=== PATIENT | female | born 1985 | race Caucasian/White ===

== ENCOUNTER 2019-11-24 18:46 | Inpatient (IN) | payer OTHER, MEDICAID, SELFPAY ==
--- NOTE | 2019-11-24 19:35 | PM.OBHP.1 ---
OB HPI Date/Time Date of admission: 11/24/19 Date Patient Seen: 11/24/19 Time Patient Seen: 19:20 History of Present Condition Chief complaint: Observation : 1 Para: 0 Estimated Date of Delivery: 11/15/19 Estimated Gestational Age (weeks): 41w2d Narrative: Kevin Alejandra is a 34 year old at 41 weeks and 2 days by LMP who has been followed by Viviana Perea CNM throughout her . Patient was planning for a at the [facility] however she has been in latent labor for the last 3 days without significant cervical change despite regular painful contractions. The decision was made this evening to transfer to the hospital for pain management. Denies leaking or bleeding and reports good movement. has been uncomplicated. She initiated care at 13 weeks. Patient denies any significant past medical history or past surgical history. She lives on [address] with her partner Vinayak. History of Present care: good care Dating criteria: based on LMP only Preadmission Labs Blood type: 0 (-) negative -: Antibody screen: negative, GBS status: negative, HBsAG: negative and RPR/VDLR: negative -: Chlamydia screen: not detected and Gonorrhea screen: not detected -: Rubella: immune HCT: 37.5 Urine: Negative 1 hr GTT: 70 Evaluation Evaluation Baseline heart rate: 130 Variability: Moderate (11-25) monitor accelerations: Present monitor decelerations: Late (Recurrent) Contraction Frequency (minutes): 3 Category of Tracing: II Cervical dilation (cm): 1 Cervical effacement (%): 90 station: -1 Exam Vital Signs (past 8 hours): Temperature 36.5? blood pressure 125/71 pulse 74 Const General: healthy appearing and acute distress (Uncomfortable with contractions) [facility] Head: normal to inspection Ears: hearing grossly normal bilaterally Nose: external nose normal Face and sinus: normal facial exam Mouth: oral mucosae normal Eyes General: appearance normal, both eyes and all related structures Neck Neck: normal visual inspection Resp Effort & Inspection: normal respiratory effort Auscultation: clear to auscultation bilaterally Cardio Rate: regular rate Rhythm: regular rhythm Heart Sounds: no murmurs GI Other: Gravid External Female Exam: external appearance normal Manual OB Exam: dilated 1, effaced fully and station -1 Presentation: vertex Estimated Weight (lbs): 7 Back/Spine/Pelvis Back: normal to inspection Skin General: no rashes or lesions noted Extrem General: normal to inspection and no pedal edema Assessment and Plan Assessment and Plan Assessment and Plan narrative: 34-year-old at 41 weeks and 2 days gestation with prolonged latent labor. GBS negative. She is exhausted and very painful. Unfortunately cervix is still 1 cm and she has been having recurrent late decelerations on the monitor since arrival. Plan Bolus IV fluids now to see if we can improve the strip Epidural now Discussed the possibility of for intolerance of labor remote from delivery. Patient is aware. Will monitor closely. Dr. Loja is aware of the situation and will come in for if necessary. Rapid COVID-19 test pending
[2019-11-24 20:15] LABS: Add Manual Diff / Slide Review NO; Basophils Absolute Auto 0 /uL (0-100); Basophils Percent Auto 0.2 % (0-2); Eosinophils Absolute Auto 0 /uL (0-450); Hematocrit 40.3 % (36-46); Hemoglobin 13.9 g/dL (12.0-16.0); Lymphocytes Absolute Auto 1100 /uL (1100-4500); Lymphocytes Percent Auto 8.3 % (25-40); Mean Corpuscular HGB Conc 34.4 % (30-36); Mean Corpuscular Hemoglobin 32.2 PG (26-34); Mean Corpuscular Volume 93.5 fL (80-100); Monocytes Absolute Auto 800 /uL (0-900); Monocytes Percent Auto 6.1 % (3-14); Neutrophils Absolute Auto 11200 /uL (1500-7000); Neutrophils Percent Auto 85.4 % (50-75); Platelet Count 179 X10^3/uL (150-400); Red Cell Distribution Width 12.9 % (11.6-14.8); White Blood Cell Count 13.1 X10^3/uL (4.5-11.0)
--- NOTE | 2019-11-24 20:32 | PM.OBPNLAB ---
Date/Time Date Patient Seen: 11/24/19 Time Patient Seen: 20:20 Pain Control Pain control: tolerating well and epidural Comments: Patient is much more comfortable with her epidural and denies pain Pelvic Exam Dilation (cm): 1 Effacement (%): 90 station: -1 Amniotic membrane status: Intact Status status: Category ll Heart Rate Baseline: 140 Monitor Accelerations: Present Monitor Decelerations: Recurrent Monitor Variability: Moderate Assessment and Plan Plan: Comments: Patient received an epidural with excellent pain control however baby continues to have recurrent late decelerations despite fluid resuscitation and position change. Cervix is still 1 cm. Recommended primary section for intolerance of labor remote from delivery. Discussed risks and benefits of including bleeding, infection and injury to surrounding organs (bowel and bladder specifically). All questions answered. Consent signed and placed in the chart. Will give 2 g of cefazolin prior to surgery.
--- NOTE | 2019-11-24 20:36 | PM.PREOP ---
Pre-operative Note COVID-19 COVID-19 status: Result pending Result date/Date tested (Pos, Neg/Pending): 11/24/19 Interval Note History & Physical reviewed/Exam performed by Physician: Yes Changes to H&P: No
[2019-11-24] MEDS: LACTATED RINGERS 1,000 ML 100 ML IV ×3 (20:45→22:06)
[2019-11-24] MEDS: CEFAZOLIN 2 GM/100 ML FROZ.PIGGY IV (21:20)
--- NOTE | 2019-11-24 21:37 | SUR.OPER ---
Supine on Padded OR bed, head on pillow, safety belt at thigh, arms secured on padded arm boards at <90 degrees abduction. Bump under right buttock. Legs uncrossed with pillow under knees, gel pad to heels, tape over blanket to lower legs.
--- NOTE | 2019-11-24 21:52 | SUR.OPER ---
Viable male delivered at 21:41. Cord blood tubes x2 and placenta sent with L&D RN.
[2019-11-24 21:57] LABS: COVID19 -Nasal RAPID Negative (Negative)
--- NOTE | 2019-11-24 22:25 | PM.OP.1 ---
Operative Date/Time/Diagnoses Date of procedure: 11/24/19 Time of procedure: 21:15 Pre-op diagnosis: intolerance of labor Post-op diagnosis: same Procedure & Clinicians Procedure: Primary low-transverse section Same procedure as scheduled: Yes Indications: 41 weeks of intolerance of labor Surgeon: Jodi Virgen Template Inspector: Naomi Loja Anesthesia Type: Epidural Operative Notes Findings: Normal uterus, tubes and ovaries Closure Type: primary Specimen(s): other (Cord blood gases) Applied: catheter Estimated Blood Loss (mL): 450 Blood products transfused: none Procedure in detail: The patient was taken to the operating room. She was then placed in the dorsal supine position with a leftward tilt. She was prepped and draped in the usual sterile fashion. A timeout was performed. After epidural analgesia was found to be adequate, a Pfannenstiel skin incision was made 2 fingerbreadths above the pubic symphysis and carried through to the underlying layer fascia. The fascia was nicked in the midline and the incision extended bilaterally with Yoo scissors. The superior aspect of the fascial incision was grasped with a Gallo clamps, elevated, and the underlying rectus muscles dissected off sharply and bluntly. Attention was then turned to the inferior aspect of this incision which in a similar fashion was grasped with a Gallo clamps, elevated, and the underlying rectus muscles dissected off sharply and bluntly. The rectus muscles were in the midline. The peritoneum was identified, grasped between 2 hemostats, and entered sharply with the Metzenbaum scissors. This incision was extended superiorly and inferiorly with good visualization of the bladder. The bladder blade was inserted. The vesicouterine peritoneum was identified, grasped with the pickup, and entered sharply with the Metzenbaum scissors. This incision was extended bilaterally, and the bladder flap was created digitally. The bladder blade was reinserted. The lower uterine segment was incised in a transverse fashion with the scalpel. Upon entering the amniotic sac there was a moderate amount of thick meconium-stained fluid. The infant's head was delivered followed by remainder of the body. The cord was double clamped and cut and a segment taken for cord gases. The infant was handed off to waiting RN and RT. The placenta was delivered manually. The uterus was cleared of all clots and debris. The uterine incision was repaired with #1 chromic in a running interlocking fashion and a second layer the same suture was used for an imbricating layer. Hemostasis was achieved. The tubes and ovaries were examined and were found to be normal. The gutters were cleared of all clots and debris. The bladder flap was reapproximated using 2-0 Vicryl in a running fashion. The parietal peritoneum was closed using 2-0 Vicryl in a running fashion. The fascia was reapproximated using #1 Vicryl in a running fashion. Subcutaneous layer was copiously irrigated with warm normal saline. The subcutaneous layer was reapproximated with 3-0 Vicryl. The skin was closed with 4-0 undyed Vicryl in a subcuticular fashion. Steri-Strips were placed. An Aquacel dressing was placed. The uterus was expressed of a small amount of old blood. Sponge, lap, and instrument counts were correct. The patient tolerated the procedure well, and was taken to PACU in stable condition. required resuscitation with PPV for 2 minutes then transition to CPAP. He was taken to the nursery for continued care. Apgars were 3 and 8 at 1 and 5 minutes. weight 3045 g. Complications: none Post-operative Condition: stable Disposition: PACU Plan for aftercare: Routine post care
[2019-11-24 22:31] VITALS: BP 109/71; PULSE 83; RESP 13; O2SAT 93
[2019-11-24 22:39] VITALS: BP 118/62; PULSE 88; RESP 14; O2SAT 98
[2019-11-24 22:41] VITALS: BP 91/64; PULSE 92; RESP 19; O2SAT 95
[2019-11-24 22:45] VITALS: TEMP 36.7
[2019-11-24 22:48] VITALS: BP 111/67; PULSE 78; RESP 15; O2SAT 97
--- NOTE | 2019-11-24 22:52 | SUR.PHASEI ---
report called to Poonam
[2019-11-24 22:53] VITALS: BP 111/66; PULSE 82; RESP 20; TEMP 36.5; O2SAT 94
--- NOTE | 2019-11-24 23:07 | SUR.PHASEI ---
Patient transferred to the center. Awake and oriented. Report given to Poonam. VS stable. Denied pain. IV and Arauz patent. Fundus and kita-pad checked by RN.
[2019-11-25] MEDS: diphenhydrAMINE 50 MG/ML VIAL 25 MG IV (01:30)
[2019-11-25] MEDS: KETOROLAC 30 MG/ML VIAL IV ×3 (05:12→18:12)
[2019-11-25] MEDS: LACTATED RINGERS 1,000 ML 100 ML IV (05:15)
[2019-11-25 07:18] VITALS: BP 114/65
[2019-11-25 08:34] LABS: Hemoglobin 11.2 g/dL (12.0-16.0)
[2019-11-25 09:12] VITALS: TEMP 37.5
[2019-11-25] MEDS: PRENATAL VIT,CALC/IRON/FOLIC 1 TABLET 1 TAB PO (09:12)
[2019-11-25] MEDS: DOCUSATE 250 MG CAPSULE PO (09:12)
[2019-11-25] MEDS: OXYCODONE/ACETAMINOPHEN 5/325 TABLET 1 TAB PO ×3 (09:12→21:51)
[2019-11-25 11:41] VITALS: TEMP 36.6
--- NOTE | 2019-11-25 12:17 | P.PNOB_ITS ---
Subjective - OB Subjective Patient comments: no complaints, pain well controlled, tolerating diet and flatus present baby status: NICU (Loyda Thompson) Date Patient Seen: 11/25/19 Time Patient Seen: 11:15 Interval history: Patient denies any complaints or concerns this morning. She has been in without difficulty. Arauz is still in place. She is eating and passing flatus. Hoping to start pumping soon since babies in the NICU. Baby is continuing to need CPAP but overall doing well. Exam Vital Signs (past 8 hours): - 11/25/19 07:18 11/25/19 09:12 11/25/19 11:41 Temperature 99.5 F 98 F Blood Pressure 114/65 Oxygen Delivery Method Room Air Narrative Exam Narrative: General: Awake and alert, no acute distress. HEENT: NCAT, EOMI, moist oral mucosa CV: Regular rate and rhythm, no murmurs, rubs or gallops Lungs: CTAB, no wheezes, rales, or rhonchi Abdomen: Aquacel dressing intact with minimal drainage. Soft, nontender; bowel tones active; uterus firm 1 cm below umbilicus. Extremities: Warm, no edema bilaterally Objective Labs Result Diagrams: 11/25/19 08:22 Labs: Laboratory Results - last 24 hr 11/24/19 11/24/19 11/24/19 19:40 19:40 19:40 WBC 13.1 H RBC 4.30 Hgb 13.9 Hct 40.3 MCV 93.5 MCH 32.2 MCHC 34.4 RDW 12.9 Plt Count 179 Neut % (Auto) 85.4 H Lymph % (Auto) 8.3 L [place] % (Auto) 6.1 Eos % (Auto) 0.0 L Baso % (Auto) 0.2 Neut # (Auto) 76296 H Lymph # (Auto) 1100 [place] # (Auto) 800 Eos # (Auto) 0 Baso # (Auto) 0 COVID-19 PCR Negative Blood Type O Negative Antibody Screen Positive Antibody Identification Anti-D 11/25/19 08:22 WBC RBC Hgb 11.2 L Hct 32.0 L MCV MCH MCHC RDW Plt Count Neut % (Auto) Lymph % (Auto) [place] % (Auto) Eos % (Auto) Baso % (Auto) Neut # (Auto) Lymph # (Auto) [place] # (Auto) Eos # (Auto) Baso # (Auto) COVID-19 PCR Blood Type Antibody Screen Antibody Identification Assessment & Plan Assessment and Plan (1) Status post section: Status: Acute Current Visit: Yes (2) 41 weeks gestation of : Status: Acute Current Visit: Yes (3) intolerance to labor, delivered, current hospitalization: Status: Acute Current Visit: Yes Plan day: 1 plan OB: routine postop care Comments: Patient is doing very well day 1 after primary for intolerance of labor. Infant required transfer to the NICU at [facility] for respiratory support. He is stable. May discharge patient in the morning if she is doing well so she can go see her baby. Time Spent With Patient Time: Total time spent is greater than 50% in coordination of care (as documented) at patient's floor/unit and/or counseling patient: Time with patient: less than 15 minutes
[2019-11-25 16:10] VITALS: TEMP 36.8
[2019-11-26] MEDS: IBUPROFEN 600 MG TABLET PO ×3 (00:10→14:20)
[2019-11-26] MEDS: OXYCODONE/ACETAMINOPHEN 5/325 TABLET 1 TAB PO (03:14)
[2019-11-26 06:43] LABS: Hematocrit 36.1 % (36-46); Hemoglobin 12.3 g/dL (12.0-16.0)
[2019-11-26] MEDS: LANOLIN OINT 7 GM 1 APPLIC TOP (08:24)
[2019-11-26] MEDS: PRENATAL VIT,CALC/IRON/FOLIC 1 TABLET 1 TAB PO (08:24)
[2019-11-26] MEDS: DOCUSATE 250 MG CAPSULE PO (08:25)
[2019-11-26] MEDS: OXYCODONE IR 5 MG TABLET PO ×2 (08:25→14:20)
[2019-11-26] MEDS: ACETAMINOPHEN 325 MG TABLET 650 MG PO ×2 (08:25→14:21)
--- NOTE | 2019-11-26 08:36 | P.DS_ITS ---
Discharge Providers Provider Date of admission: 11/24/19 18:46 Discharge Date: 11/26/19 Consults: 11/25/19 04:32 Consult to Insurance Claims Representative Routine Comment: Discharge provider: Jodi Virgen DO Summary Hospital Course Date Patient Seen: 11/26/19 Time Patient Seen: 07:45 Procedures: Primary low-transverse section Hospital Course: Patient is a 34-year-old after primary low transverse section for intolerance labor. Patient received care with Viviana Perea, secretary to board of commissioners, however transferred to [facility] in early labor for pain control. Upon arrival to the center she was having late decelerations with every contraction. Attempts were made at resuscitation with fluid and position change. Patient received an epidural with excellent pain control. After epidural placement she continued to have recurrent late deceleration so the decision was made for primary . Upon delivery there was sick meconium. Patient did well with surgery however required resuscitation after and continued support with CPAP. He was transferred to the NICU at [facility] for continued support. patient has done very well. She is ambulating, eating, voiding and passing flatus. Vaginal bleeding is light. Pain is well controlled with ibuprofen and oxycodone. She will discharge today to join her son in the NICU. She has been able to pumped and produce a small amount of colostrum. Patient advised to call for fevers, severe pain or bleeding through more than a pad an hour. She will follow-up later this week for dressing removal. Peripartum Data Infant Delivery Method: Section complications: none 1: Gender: Male Disposition of : NICU Discharge Diagnosis (1) Status post section: Status: Acute (2) 41 weeks gestation of : Status: Acute (3) intolerance to labor, delivered, current hospitalization: Status: Acute Time Spent with Patient Time attestation: Total time spent providing and/or coordinating discharge services: Time spent: Less than 30 minutes Objective Labs Result Diagrams: 11/26/19 06:30 Labs: Laboratory Results - last 24 hr 11/25/19 11/26/19 08:22 06:30 Hgb 11.2 L 12.3 Hct 32.0 L 36.1 Exam Vital Signs (past 8 hours): Oxygen Delivery Method Room Air Narrative Exam Narrative: Temperature 98.2? blood pressure 109/68 heart rate 71 respirations 17 General: Awake and alert, no acute distress. HEENT: NCAT, EOMI, moist oral mucosa CV: Regular rate and rhythm, no murmurs, rubs or gallops Lungs: CTAB, no wheezes, rales, or rhonchi Abdomen: Aquacel dressing intact without new drainage. Soft, nontender; bowel tones active; uterus firm 1 cm below umbilicus. Extremities: Warm, no edema bilaterally, 2+ pedal pulses bilaterally Discharge Plan Discharge Plan Patient Disposition: Home Discharge orders & Medications Prescriptions: No Action docusate sodium 250 mg capsule 250 mg PO DAILY Qty: 30 RF: 0 ibuprofen 600 mg tablet 600 mg PO Q6HR PRN (Reason: Fever/Mild Pain (1-3)) Qty: 30 RF: 0 oxycodone 5 mg tablet 5 mg PO Q4HR PRN (Reason: Pain, Moderate (4-6)) Qty: 20 RF: 0 Follow up/Referrals: Jodi Virgen DO [Physician] - 11/29/19 12:00 pm Visit Report/Discharge Packet Visit Report Forms: Patient Portal/API, Stroke Signs & Symptoms
[2019-11-26 10:06] VITALS: BP 114/65; PULSE 82; RESP 20; TEMP 36.8
== END 2019-11-26 15:20 | disposition home or self-care (01) | DRG 540 ==
PROVIDERS: Admitting Provider Family Medicine; Referring Provider Family Medicine; Visit Provider Family Medicine
PROC: 10D00Z1 Extraction of Products of Conception, Low, Open Approach (ICD-10-PCS; CPT 59514; principal; 2019-11-24 21:00)
DX: O63.0 Prolonged first stage (of labor) (principal); Z3A.41 41 weeks gestation of pregnancy; Z37.0 Single live birth; O26.813 Pregnancy related exhaustion and fatigue, third trimester; O76 Abnormality in fetal heart rate and rhythm complicating labor and delivery; O77.0 Labor and delivery complicated by meconium in amniotic fluid; Z11.59 Encounter for screening for other viral diseases
CPT/HCPCS: 01967; 01968; 36415; 59050; 59514; 85014; 85018; 85025; 86850; 86870; 86900; 86901; 87635; 99222; G0379; J0690; J1200; J1885; J2274; J2405; J2590; J3010

== ENCOUNTER → 2020-10-21 11:23 | Outpatient (CLI) | payer OTHER, MEDICAID, SELFPAY ==
[2020-10-21 20:08] LABS: COVID19 - ORCAS (NP or Nasal) Negative (Negative)
== END ==
PROVIDERS: PCP Family Medicine; Visit Provider Family Medicine
DX: Z20.822 Contact with and (suspected) exposure to COVID-19 (principal)
CPT/HCPCS: U0003

== ENCOUNTER → 2021-10-29 09:35 | Outpatient (CLI) | payer OTHER, MEDICAID, SELFPAY ==
[2021-10-29 18:47] LABS: Add Manual Diff / Slide Review NO; Basophils Absolute Auto 0 /uL (0-100); Basophils Percent Auto 0.7 % (0-2); Eosinophils Absolute Auto 100 /uL (0-450); Eosinophils Percent Auto 2.3 % (2-4); Hematocrit 40.6 % (36-46); Lymphocytes Absolute Auto 1300 /uL (1100-4500); Lymphocytes Percent Auto 32.6 % (25-40); Mean Corpuscular HGB Conc 34.5 % (30-36); Mean Corpuscular Hemoglobin 32.3 PG (26-34); Mean Corpuscular Volume 93.7 fL (80-100); Monocytes Absolute Auto 400 /uL (0-900); Monocytes Percent Auto 8.9 % (3-14); Neutrophils Absolute Auto 2200 /uL (1500-7000); Neutrophils Percent Auto 55.5 % (50-75); Platelet Count 182 X10^3/uL (150-400); Red Blood Cell Count 4.33 X10^6/uL (4.0-5.2); Red Cell Distribution Width 12.5 % (11.6-14.8)
[2021-10-29 18:50] LABS: Alanine Aminotransferase 17 IU/L (<35); Albumin 4.4 g/dL (3.5-5.0); Albumin Globulin Ratio 1.6 (1.0-2.8); Alkaline Phosphatase 55 U/L (38-126); Aspartate Aminotransferase 22 IU/L (14-36); BUN Creatinine Ratio 15.3 (6-22); Bilirubin Total 0.6 mg/dL (0.2-1.3); Blood Urea Nitrogen 11 mg/dL (7-17); Calcium 9.4 mg/dL (8.4-10.2); Carbon Dioxide 27 mmol/L (22-32); Chloride 103 mmol/L (98-107); Estimated Glomerular Filt Rate > 60 mL/min (>60); Globulin 2.8 g/dL (1.7-4.1); Glucose 94 mg/dL (70-100); HEMOLYSIS < 15 (0-50); Potassium 4.8 mmol/L (3.4-5.1); Sodium 138 mmol/L (137-145); Total Protein 7.2 g/dL (6.3-8.2)
[2021-10-29 19:46] LABS: Thyroid Stimulating Hormone 0.639 uIU/mL (0.47-4.68)
== END ==
PROVIDERS: PCP Physician Assistant; Visit Provider Physician Assistant
DX: N92.0 Excessive and frequent menstruation with regular cycle (principal)
CPT/HCPCS: 80053; 84443; 85025

== ENCOUNTER → 2022-11-26 13:13 | Outpatient (CLI) | payer OTHER, MEDICAID, SELFPAY ==
--- NOTE | 2022-11-26 | DI.US.S_ITS ---
PROCEDURE: US OB <= 14 WEEKS FETUS INDICATIONS: DATING OUTSIDE/PRIOR DATING DATA: Last menstrual period (LMP): 09/17/2022. LMP-based estimated date of delivery (JAMIA): 06/24/2023. First dating scan (date and location): 11/22/2022 at . Estimated date of delivery (JAMIA) from first dating scan: 06/20/2023. TECHNIQUE: Real-time scanning was performed of the fetus, with image documentation and biometric measurements. Endovaginal scanning: Not performed COMPARISON: None. FINDINGS: A single living intrauterine gestation is present. heart rate is 152 BPM. Based on the crown-rump length, the estimated gestational age is 10 weeks 4 days. A normal appearing yolk sac is visualized. Ovaries are grossly normal. There is a corpus luteal cyst in the right ovary. IMPRESSION: 1. A single living intrauterine gestation with an estimated gestational age of 10 weeks 4 days corresponding to ultrasound JAMIA 06/20/2023. We strive to produce accurate, complete, and clear reports of imaging services. To assist us in improving patient care, this report was composed using standard report templates and voice recognition software. Therefore, it may contain abnormal punctuation, insertions and/or omissions. Occasional wrong-word or sound-alike substitutions may occur. Though we review the report and make efforts to correct it, we do recommend that the report be read carefully in proper context to recognize any text inaccuracies. Dictated by: Raphael Becker M.D. on 11/26/2022 at 14:55 Approved by: Raphael Becker M.D. on 11/26/2022 at 15:00
== END ==
PROVIDERS: PCP Physician Assistant; Referring Provider Obstetrics & Gynecology; Visit Provider Obstetrics & Gynecology
DX: Z34.81 Encounter for supervision of other normal pregnancy, first trimester (principal); Z3A.10 10 weeks gestation of pregnancy
CPT/HCPCS: 76801

== ENCOUNTER → 2022-12-22 16:19 | Outpatient (CLI) | payer OTHER, MEDICAID, SELFPAY ==
[2022-12-22 17:29] LABS: Add Manual Diff / Slide Review NO; Basophils Absolute Auto 0 /uL (0-100); Basophils Percent Auto 0.3 % (0-2); Eosinophils Absolute Auto 0 /uL (0-450); Eosinophils Percent Auto 0.6 % (2-4); Hematocrit 38.7 % (36-46); Hemoglobin 13.7 g/dL (12.0-16.0); Lymphocytes Absolute Auto 1500 /uL (1100-4500); Lymphocytes Percent Auto 23.3 % (25-40); Mean Corpuscular HGB Conc 35.4 % (30-36); Mean Corpuscular Hemoglobin 31.9 PG (26-34); Monocytes Absolute Auto 300 /uL (0-900); Monocytes Percent Auto 4.5 % (3-14); Neutrophils Absolute Auto 4500 /uL (1500-7000); Neutrophils Percent Auto 71.3 % (50-75); Platelet Count 185 X10^3/uL (150-400); Red Blood Cell Count 4.29 X10^6/uL (4.0-5.2); Red Cell Distribution Width 12.6 % (11.6-14.8); White Blood Cell Count 6.3 X10^3/uL (4.5-11.0)
[2022-12-23 05:53] LABS: RPR Screen Non Reactive (Non Reactive)
[2022-12-23 10:55] LABS: Varicella IgG Antibody 884 index (Immune >165)
[2022-12-23 16:30] LABS: HIV 1 & 2 Ab/Ag 4th Gen Combo NEGATIVE (NEGATIVE); Hep C Virus Ab w/Reflex Quant NEGATIVE s/c (NEGATIVE); Hepatitis B Surface Antigen NEGATIVE s/c (NEGATIVE)
== END ==
PROVIDERS: PCP Physician Assistant; Referring Provider Obstetrics & Gynecology; Visit Provider Obstetrics & Gynecology
DX: Z34.81 Encounter for supervision of other normal pregnancy, first trimester (principal)
CPT/HCPCS: 36415; 80055; 86787; 86803; 86850; 86900; 86901; 87389

== ENCOUNTER → 2023-01-19 10:25 | Outpatient (CLI) | payer OTHER, MEDICAID, SELFPAY ==
[2023-01-21 20:44] LABS: AFP, Serum 38.9 ng/mL (.); Estriol, Free 1.57 ng/mL (.); Inhibin A, Dimeric 129.49 pg/mL (.); Inhibin A, MoM 0.96 (.); Maternal Ethnicity Caucasian (.); Maternal Weight 182 lbs (.); Number of Fetuses No (.); OSBR Risk 1 IN 10000 (.); Results Report (.); Test Results *Screen Negative* (.); hCG, MoM 0.69 (.); hCG, Serum 18610 mIU/mL (.)
== END ==
PROVIDERS: PCP Physician Assistant; Referring Provider Obstetrics & Gynecology; Visit Provider Obstetrics & Gynecology
DX: Z3A.18 18 weeks gestation of pregnancy (principal); Z34.82 Encounter for supervision of other normal pregnancy, second trimester
CPT/HCPCS: 36415; 82105; 82677; 84702; 86336

== ENCOUNTER → 2023-03-18 13:45 | Outpatient (CLI) | payer OTHER, MEDICAID, SELFPAY ==
[2023-03-18 15:24] LABS: Hematocrit 35.3 % (36-46); Hemoglobin 12.3 g/dL (12.0-16.0)
[2023-03-18 15:52] LABS: GTT (PREG) 1 Hour PP 50gm Dose 101 mg/dL (76-139)
== END ==
PROVIDERS: PCP Physician Assistant; Referring Provider Obstetrics & Gynecology; Visit Provider Obstetrics & Gynecology
DX: Z34.82 Encounter for supervision of other normal pregnancy, second trimester (principal); Z3A.26 26 weeks gestation of pregnancy
CPT/HCPCS: 36415; 82950; 85014; 85018; 86850

== ENCOUNTER → 2023-05-31 15:54 | Outpatient (CLI) | payer OTHER, MEDICAID, SELFPAY ==
[2023-06-01 12:38] LABS: Strep Grp B PCR NEG for Grp B Strep
== END ==
PROVIDERS: Visit Provider Obstetrics & Gynecology
DX: Z34.83 Encounter for supervision of other normal pregnancy, third trimester (principal); Z3A.37 37 weeks gestation of pregnancy
CPT/HCPCS: 87653

== ENCOUNTER 2023-06-17 05:44 | Inpatient (IN) | payer OTHER, MEDICAID, SELFPAY ==
--- NOTE | 2023-06-16 16:25 | PM.OBHP.1 ---
OB HPI Date/Time Date of admission: 06/17/23 Date Patient Seen: 06/17/23 Time Patient Seen: 07:15 History of Present Condition Chief complaint: IUP, 39+ wks EGA, prior CS, GBS neg : 2 Para: 1 Estimated Date of Delivery: 06/20/23 Estimated Gestational Age (weeks): 39+4 Narrative: Kevin Alejandra is a 37 year old admitted at 39+4 wks for repeat section. course has been largely uneventful with solid early dating and appropriate milestones throughout. GBS is negative. Indications Operative indications ( section): previous uterine surgery History of Present care: good care Dating criteria: LMP confirmed by 1st trimester US Ultrasounds: normal 1st trimester US and normal mid trimester US Obstetrical complications: none Medical complications: none Preadmission Labs Blood type: 0 (-) negative -: Antibody screen: negative, GBS status: negative, HBsAG: negative, HIV: negative and RPR/VDLR: negative -: Chlamydia screen: not detected and Gonorrhea screen: not detected -: Rubella: immune and Varicella: immune HCT: 36.1 HCAB: negative PAP: Normal Quad screen: Normal Cell-free DNA: Atypical 1 hr GTT: 101 Prior (ies) History: CS x 1 Evaluation Evaluation Baseline heart rate: 120 Variability: Moderate (11-25) monitor accelerations: Present Monitor Decelerations: Absent Category of Tracing: Reactive Status: Category l PFSH Medical History (Updated 05/31/23 @ 15:54 by Dustin Borrego MD) Arm fracture depression Mental health problem Surgical History (Updated 12/22/22 @ 16:00 by Dustin Borrego MD) History of delivery [place] teeth extracted Family History (Updated 12/01/22 @ 11:10 by Susie Olivas RN) Mother Breast cancer Kidney failure Grandmother Breast cancer Brother Substance abuse Social History marital status: unmarried,living together number of children: 1 household members: spouse and children lives independently: Yes caregiver/support person: Yes housing: condominium pets and animals: No education level: college (bachelor's degree) occupational status: unemployed current occupational exposures/hazards: No special ronan needs: No travel history: over 6 months ago seatbelt use: always helmet use: Yes water heater temp set < 120 deg: Yes working smoke detector in home: Yes fire extinguisher in home: Yes carbon monox detector in home: Yes firearms in home: No do you feel safe at home: Yes Smoking Status: Former smoker second hand exposure: No alcohol intake: former (1-2/week when not ) substance use type: marijuana during the past year weight has: decreased > 10 lbs (intentional w/ diet & exercise) well-balanced diet: daily or most days daily servings fruits/ve or more times/day caffeine: Yes (1 cup coffee in AM) Type(s) of exercise: walking and running frequency: daily Meds Home Medications and Allergies Home Medications Medication Instructions Recorded Confirmed Type prenat.vits,missy,ahb-qwip-dackc 1 tab PO DAILY 12/01/22 06/17/23 History Allergies Allergy/AdvReac Type Severity Reaction Status Date / Time Sulfa (Sulfonamide Allergy Verified 06/17/23 06:30 Antibiotics) Review of Systems Review of Systems Narrative: Problem-specific ROS positives included in HPI OB Exam Vital signs Blood Pressure: 117/58 Pulse Rate: 84 Temperature: 97.8 F HENMT Head: normal to inspection, normocephalic and atraumatic Eyes General: appearance normal, both eyes and all related structures Resp Effort & Inspection: normal respiratory effort and able to speak in complete sentences Auscultation: clear to auscultation bilaterally Cardio Rate: regular rate Rhythm: regular rhythm Heart Sounds: S1 normal, S2 normal and no murmurs Extremities Lower extremity: Yes normal to inspection GI Inspection: normal to inspection Palpation: Yes soft and Yes no hepatosplenomegaly Uterus Location (Fundal Height): 37 Presentation: vertex Estimated Weight (lbs): 8 Objective Labs 06/17/23 06:30 Assessment and Plan Assessment and Plan Assessment and Plan narrative: ASSESSMENT 1. Intrauterine , 39+ 4 weeks gestational age 2. Prior section 3. GBS negative status PLAN 1. Admit for repeat section 2. See admission orders
[2023-06-17 06:26] VITALS: BP 117/58
[2023-06-17 06:50] LABS: Add Manual Diff / Slide Review NO; Basophils Absolute Auto 100 /uL (0-100); Basophils Percent Auto 0.8 % (0-2); Eosinophils Absolute Auto 100 /uL (0-450); Hematocrit 36.1 % (36-46); Hemoglobin 12.4 g/dL (12.0-16.0); Lymphocytes Absolute Auto 1800 /uL (1100-4500); Lymphocytes Percent Auto 28.4 % (25-40); Mean Corpuscular HGB Conc 34.3 % (30-36); Mean Corpuscular Hemoglobin 31.8 PG (26-34); Mean Corpuscular Volume 92.5 fL (80-100); Monocytes Absolute Auto 500 /uL (0-900); Monocytes Percent Auto 8.2 % (3-14); Neutrophils Absolute Auto 3800 /uL (1500-7000); Neutrophils Percent Auto 61.6 % (50-75); Platelet Count 182 X10^3/uL (150-400); Red Cell Distribution Width 13.6 % (11.6-14.8); White Blood Cell Count 6.2 X10^3/uL (4.5-11.0)
[2023-06-17 07:29] VITALS: BP 117/58; PULSE 84; TEMP 36.6
--- NOTE | 2023-06-17 07:29 | PM.PREOP ---
Pre-operative Note COVID-19 COVID-19 status: Not tested Interval Note History & Physical reviewed/Exam performed by Physician: Yes Changes to H&P: No
[2023-06-17] MEDS: CITRIC ACID/SODIUM CITRATE 15 ML SOLUTION 30 ML PO (07:33)
[2023-06-17] MEDS: LACTATED RINGERS 1,000 ML 999 ML IV (07:33)
[2023-06-17] MEDS: CEFAZOLIN 2 GM/100 ML PREMIX 100 ML IV (08:00)
--- NOTE | 2023-06-17 08:29 | SUR.OPER ---
Supine on Padded OR bed, head on pillow, safety belt at thigh, arms secured on padded arm boards at <90 degrees abduction. Bump under right buttock. Legs uncrossed, gel pad to heels, tape over blanket to lower legs. Gel pad under patients right posterior thigh, over catheter tubing.
[2023-06-17] MEDS: LACTATED RINGERS 1,000 ML 42 ML IV (08:35)
--- NOTE | 2023-06-17 08:45 | SUR.OPER ---
Viable baby girl delivered at 0836, placenta and cord blood tubes X2 given to L&D RN.
[2023-06-17 09:41] VITALS: BP 94/65; PULSE 57; RESP 20; TEMP 36.3; O2SAT 97
[2023-06-17 09:50] VITALS: BP 100/64; PULSE 64; RESP 18; O2SAT 97
[2023-06-17 09:51] VITALS: BP 93/60; PULSE 60; RESP 20; O2SAT 98
[2023-06-17 09:56] VITALS: BP 97/64; PULSE 60; RESP 14; TEMP 36.3; O2SAT 99
--- NOTE | 2023-06-17 09:56 | PM.OBCS.1 ---
Operative Date/Time/Diagnoses Date of procedure: 06/17/23 Time of procedure: 08:00 Pre-op diagnosis: Intrauterine gestation, decker, 39+4 weeks EGA Previous section x 1 Post-op diagnosis: same Procedure & Clinicians Procedure: Repeat section (low transverse cervical) Same procedure as scheduled: Yes Indications: Kevin Alejandra is a 37 year old admitted at 39+4 wks for repeat section. course has been largely uneventful with solid early dating and appropriate milestones throughout. GBS is negative. Surgeon: Dustin Borrego Risk Prevention Engineer: Ena Post Reason for Risk Prevention Engineer: Risk Prevention Engineer required for the safe, effective, and timely completion of this surgery. Anesthesia Type: Spinal Operative Notes Findings: Viable female BW [], Apgars 9/9, delivered from the vertex presentation. Normal gravid anatomy. Closure Type: primary Specimen(s): cord blood Intraoperative meds administered: Ketorolac and Pitocin Applied: Catheter Estimated Blood Loss (mL): 600 Blood products transfused: none Procedure in detail: With her informed written consent, the patient was taken to the operating room and placed in the supine position for a repeat section procedure, for the indication(s) above. The abdomen was prepped and draped in the usual manner for section and a pre-surgical timeout was taken per [facility] OR protocol. Once effective anesthesia was confirmed, a 15 cm transverse Pfannenstiel incision was made in the skin and taken down through the subcutaneous tissues to the deep fascia. The deep fascia was incised transversely, the rectus abdominal eyes bluntly and sharply, and the peritoneal cavity entered without difficulty. The lower uterine segment was visualized and the position/presentation palpated. A transverse incision at or above the vesicouterine reflection was made with Metzenbaum scissors and transverse hysterotomy performed near the midline. Amniotomy revealed clear fluid. The incision was extended bilaterally with digital traction and the infant was delivered easily from the vertex presentation. The infant was vigorous and cord clamping delayed for 60 seconds. The placenta was delivered intact using gentle cord traction and fundal massage.The uterine cavity was then cleared of any clot/debris first with a sloppy wet lap tape followed by a dry lap tape. Ring forceps were then applied to the angles and the midline of the incised ROBERT. A primary closure of the uterus was then accomplished with #1 CCGS in a running interlocking stitch followed by a 2nd layer of #1 CCGS in a running interlocking imbricating stitch. Two additional xrpcni-bv-[id number] sutures were required to achieve complete hemostasis. Once pelvic hemostasis was assured, the bladder flap and anterior peritoneum were closed with a running 2-0 Vicryl suture and the fascia closed with #1 Vicryl in a running stitch initiated at both angles and tying separately near the midline. The subcutaneous tissues were reapproximated with 2-0 plain catgut suture using inverted interrupted stitches. The skin edges were then brought together with 4-0 Monocryl in a subcuticular closure and the incision was reinforced with 1 Steri-Strips. An appropriate compression dressing was applied and the patient transferred to PACU for recovery and subsequent transfer to the Center for recuperation. Complications: none Baby 1: Gender: Female Presentation: vertex Position: Left Occiput Anterior Placental Delivery Description: Spontaneous Cord Vessel Description: 3 Vessels score (1 min): 9 score (5 min): 10 weight: 6 lb 7.6 oz Post-operative Condition: stable Disposition: PACU Aftercare: routine postop
--- NOTE | 2023-06-17 10:09 | SUR.PHASEI ---
Pt transferred in bed to with Jackie Garay and baby on breast. No change to lochia and fundus, assessment done with Jackie GARAY
[2023-06-17] MEDS: KETOROLAC 30 MG/ML VIAL IV ×3 (10:53→23:44)
[2023-06-17] MEDS: diphenhydrAMINE 50 MG/ML VIAL 25 MG IV (11:14)
[2023-06-17] MEDS: DOCUSATE 100 MG CAPSULE PO (23:44)
[2023-06-17] MEDS: ACETAMINOPHEN 325 MG TABLET 650 MG PO (23:44)
[2023-06-18] MEDS: ACETAMINOPHEN 325 MG TABLET 650 MG PO ×2 (06:20→12:29)
[2023-06-18] MEDS: KETOROLAC 30 MG/ML VIAL IV (06:20)
[2023-06-18 06:44] LABS: Add Manual Diff / Slide Review NO; Basophils Absolute Auto 0 /uL (0-100); Basophils Percent Auto 0.2 % (0-2); Eosinophils Absolute Auto 100 /uL (0-450); Hematocrit 31.7 % (36-46); Lymphocytes Absolute Auto 1100 /uL (1100-4500); Mean Corpuscular HGB Conc 34.7 % (30-36); Mean Corpuscular Hemoglobin 32.5 PG (26-34); Mean Corpuscular Volume 93.5 fL (80-100); Monocytes Absolute Auto 500 /uL (0-900); Monocytes Percent Auto 5.2 % (3-14); Neutrophils Absolute Auto 8100 /uL (1500-7000); Neutrophils Percent Auto 82.6 % (50-75); Platelet Count 153 X10^3/uL (150-400); Red Blood Cell Count 3.39 X10^6/uL (4.0-5.2); Red Cell Distribution Width 13.5 % (11.6-14.8); White Blood Cell Count 9.8 X10^3/uL (4.5-11.0)
[2023-06-18] MEDS: RHO(D) IMMUNE GLOBULIN 1,500 UNIT SYRINGE 1500 UNIT IM (09:45)
[2023-06-18] MEDS: DOCUSATE 100 MG CAPSULE PO (09:45)
[2023-06-18] MEDS: PRENATAL VIT,CALC/IRON/FOLIC 1 TABLET 1 TAB PO (09:45)
--- NOTE | 2023-06-18 10:50 | PM.OBDS.1 ---
Discharge Providers Provider Date of admission: 06/17/23 05:44 Discharge Date: 06/18/23 Primary care physician: Doctor Francine MD Consults: 06/17/23 09:52 Consult to [employer] Engine Routine Comment: Discharge provider: Dustin Borrego MD Summary Hospital Course Date Patient Seen: 06/18/23 Time Patient Seen: 10:50 Diagnoses: Intrauterine gestation, 39+ 4 weeks, delivered by repeat section Prior section Rh-negative status, antepartum Hospital Course: Kevin was admitted for repeat section in the morning of 06/17/2023. Full details of that uneventful procedure are well summarized on my operative note of that date. Following delivery, the patient has done extremely well with prompt return of bowel and bladder function, she is ambulating independently, tolerating a regular diet, and her pain is well controlled with oral pain medications. Her , while thriving, has a positive indirect Eleonora and is being evaluated at the time of maternal discharge. Her discharge status is uncertain at this time and if the baby can not be discharged today the mother will be discharged to boarding status. She is discharged at this time in an afebrile normotensive condition to home after counseling regarding precautionary symptoms, limitations activity, medications, plans for follow-up which will be in 1 week. Medications at discharge will include resumption of all free medications along with oxycodone 5 mg p.o. Q 4-6 hours, dispense 20 with no refills, and ibuprofen 600 mg p.o. q.6 hours as needed pain, dispense 20 with 2 refills. Peripartum Data Infant Delivery Method: Section Laceration Description: None Episiotomy description: None Procedures: Spinal block anesthetic Repeat section, low transverse cervical complications: none 1: Gender: Female Disposition of : home Status at Discharge Cognitive/behavioral status at discharge: oriented Functional status at discharge: independent ambulation Overall status at discharge: patient is progressing back to baseline Time Spent with Patient Time attestation: Total time spent providing and/or coordinating discharge services: Time spent: Less than 30 minutes Objective Labs 06/18/23 06:18 Labs: Laboratory Results - last 24 hr 06/18/23 06:18 WBC 9.8 D RBC 3.39 L Hgb 11.0 L Hct 31.7 L MCV 93.5 MCH 32.5 MCHC 34.7 RDW 13.5 Plt Count 153 Neut % (Auto) 82.6 H D Lymph % (Auto) 11.0 L [place] % (Auto) 5.2 Eos % (Auto) 1.0 L Baso % (Auto) 0.2 Neut # (Auto) 8100 H Lymph # (Auto) 1100 [place] # (Auto) 500 Eos # (Auto) 100 Baso # (Auto) 0 Exam Vital Signs (past 8 hours): Oxygen Delivery Method Room Air Const General: cooperative and comfortable Nutritional Appearance: average body habitus Orientation: alert and oriented x3 HENMT Head: normal to inspection, atraumatic and abrasion Ears: hearing grossly normal bilaterally Face and sinus: face symmetric Eyes General: appearance normal, both eyes and all related structures Conjunctivae: conjunctivae normal Sclera: sclerae normal EOM: EOM intact bilaterally Neck Neck: normal visual inspection Resp Effort & Inspection: normal respiratory effort and able to speak in complete sentences Auscultation: clear to auscultation bilaterally Cardio Rate: regular rate Rhythm: regular rhythm Heart Sounds: S1 normal, S2 normal and no murmurs GI Inspection: normal to inspection and incision (Compression dressing removed, Aquacel applied) Palpation: soft, no hepatosplenomegaly and tender (Mild, diffuse postsurgical tenderness) External Female Exam: other (No significant bleeding noted) Extrem General: no calf tenderness Psych Appearance: grossly normal Mental Status: mental status grossly normal Speech and Movement: speech and movement normal Mood: congruent mood Affect: normal affect Attitude: cooperative Thought Process: normal Thought Content: normal Judgment: judgment good Discharge Plan Discharge Plan Patient Disposition: Home Provider Discharge Comment: Please review the written instructions you received when you were discharged from the hospital. Your follow-up appointment will be scheduled for 1 week after your and I look forward to seeing you then. If however in the meanwhile you have any questions, concerns, or problems, please contact me either through the office phone at [phone], or via the patient portal. Discharge orders & Medications Prescriptions: New ibuprofen 600 mg Tablet 600 mg PO Q6H Qty: 30 2RF oxycodone 5 mg Tablet 5 mg PO PACUNOW PRN (Reason: Mild or moderate pain) Qty: 12 0RF Continued prenat.vits,missy,mzy-fexl-qhfkt Tablet 1 tab PO DAILY Follow up/Referrals: Miscellaneous,Doctor, [Primary Care Provider] - Dustin Borrego MD [Physician] - (Incision check with on 06/24/2023 @ 1415pm 6 week post check on 07/29/2023 @ 1330pm) Discharge Health Status Multidrug resistant organism: No MDRO Diet/Activity/Treatments Diet: Diet as Tolerated Activity: As tolerated Other treatments: Over the counter Tylenol and/or ibuprofen may be used for additional pain relief. [id number]-[id number] stool softeners and/or MiraLax may be used as needed for constipation. Skin/Wound/Dressing Care Report to your healthcare provider any signs of infection, such as:: chills, fever, increased pain, unusual drainage and unusual redness Dressing: Your dressing will be removed at time of your one-week postop visit. Visit Report/Discharge Packet Instructions: DI for , DI for and Nipple Soreness, DI for Prescription Opioid Use Discharge Data Primary Care Provider: Miscellaneous,Doctor
[2023-06-18] MEDS: IBUPROFEN 600 MG TABLET PO (12:29)
[2023-06-18 12:32] VITALS: BP 120/77; PULSE 86; RESP 16; TEMP 36.6; O2SAT 100
[2023-06-18] MEDS: OXYCODONE IR 5 MG TABLET PO (13:20)
[2023-06-18] MEDS: LANOLIN OINT 7 GM 1 APPLIC TOP (13:20)
== END 2023-06-18 13:49 | disposition home or self-care (01) | DRG 540 ==
PROVIDERS: Admitting Provider Obstetrics & Gynecology; Referring Provider Obstetrics & Gynecology; Visit Provider Obstetrics & Gynecology
PROC: 10D00Z1 Extraction of Products of Conception, Low, Open Approach (ICD-10-PCS; CPT 59514; principal; 2023-06-17 07:45)
DX: O34.211 Maternal care for low transverse scar from previous cesarean delivery (principal); Z3A.39 39 weeks gestation of pregnancy; Z37.0 Single live birth; O36.0130 Maternal care for anti-D [Rh] antibodies, third trimester, not applicable or unspecified
CPT/HCPCS: 36415; 59025; 59050; 59514; 85025; 86850; 86870; 86900; 86901; J0690; J1200; J1885; J2274; J2405; J2590; J2790; J3010